=== PATIENT | female | born 1995 | race Caucasian/White ===

== ENCOUNTER 2016-04-12 23:20 | Emergency (ER) | payer OTHER ==
[~2016-04-12] VITALS: Ht 167.6 cm; Wt 74.1 kg
[~2016-04-12 23:20] MED LIST: AMOXICILLIN500 MG PO; EPIPEN ADU0.3 MG/0.3 IM; FLAGYL500 MG PO; FLEXERIL5 MG PO; IMODIUM MS REL1 EACH PO; MOTRIN800 MG PO; NAPROSYN500 MG PO; OXYCODONE H5 MG/5 ML PO; PREDNISONE20 MG PO; PRILOSEC20 MG PO; PROMETHAZINE HC25 M1 PO; ZOFRAN ODT8 MG PO
[2016-04-12 23:43] LABS: HEMATOCRIT 37.8 % (36.0-46.0); MCH 29.5 PG (29.0-34.0); MCHC 33.6 G/DL (30.0-36.0); MCV 87.9 FL (83-99); MEAN PLAT.VOLUME 9.3 uM^3 (9.5-12.4); PLATELET COUNT 340 K/uL (156-360); RBC DIS.WIDTH-CV 12.9 % (11.8-14.6); RBC DIS.WIDTH-SD 40.6 % (39-53); WHITE BLOOD COUNT 10.5 K/uL (4.1-10.2)
[2016-04-12 23:52] LABS: CHLORIDE 107 mEq/L (99-109); POTASSIUM 3.7 mEq/L (3.7-5.4); SODIUM 142 mEq/L (136-147)
[2016-04-12 23:54] LABS: GLUCOSE 92 mg/dL (70-99)
[2016-04-12 23:55] LABS: ANION GAP 11 MEQ/L (2-14)
[2016-04-12 23:56] LABS: TOTAL BILIRUBIN 0.3 mg/dL (0.0-1.0)
[2016-04-12 23:57] LABS: ALKALINE PHOSPHATASE 55 IU/L (3-129)
[2016-04-12 23:58] LABS: GFR ESTIMATE (CALCULATED) > 59 mL/min/
[2016-04-12 23:59] LABS: UREA NITROGEN (BUN) 9 mg/dL (9-23)
[2016-04-13 00:06] LABS: QUANTITATIVE HCG < 4.0 MIU/ML
[2016-04-13 00:28] LABS: ADD MIUA? YES; BILIRUBIN NEGATIVE; BLOOD LARGE; COLOR YELLOW ((YELLOW)); GLUCOSE (STRIP) NEGATIVE; KETONES NEGATIVE; LEUKOCYTES SMALL; NITRITE NEGATIVE; PROTEIN (STRIP) >=300; SPECIFIC GRAVITY 1.024 (1.000-1.030); UROBILINOGEN 0.2 MG/DL (0.2-1.0)
[2016-04-13 00:45] LABS: RED BLOOD CELLS TNTC /HPF (0-5)
[2016-04-13 00:49] LABS: WHITE BLOOD CELLS 20-30 /HPF (0-5)
[2016-04-13 00:50] LABS: BACTERIA NONE SEEN; CASTS NONE SEEN /LPF; CRYSTALS NONE SEEN; EPITHELIAL CELLS NONE SEEN; MUCUS NONE SEEN; UCUL ADDED? NO
[2016-04-13] MEDS ORDERED: CIPRO500 MG PO (04:32)
[2016-04-13] MEDS ORDERED: ZOFRAN ODT4 MG PO (04:32)
[2016-04-13] MEDS ORDERED: PYRIDIUM200 MG PO (04:32)
[2016-04-13 04:48] VITALS: BP 121/65
== END 2016-04-13 04:52 | disposition home or self-care (01) ==
LOC: EME 23:20
DX: N39.0 Urinary tract infection, site not specified (principal)
CPT/HCPCS: 74176; 80053; 81003; 84702; 85027; 99281; 99284

== ENCOUNTER 2016-10-07 10:36 | Emergency (ER) | payer OTHER ==
[~2016-10-07] VITALS: Ht 170.2 cm; Wt 74.1 kg
[~2016-10-07 10:36] MED LIST changes: +CIPRO500 MG PO; +PYRIDIUM200 MG PO; +ZOFRAN ODT4 MG PO
[2016-10-07 11:33] LABS: ADD MIUA? YES; BILIRUBIN NEGATIVE; BLOOD LARGE; COLOR YELLOW ((YELLOW)); GLUCOSE (STRIP) NEGATIVE; KETONES NEGATIVE; LEUKOCYTES NEGATIVE; NITRITE NEGATIVE; PROTEIN (STRIP) 30; SPECIFIC GRAVITY 1.015 (1.000-1.030); UROBILINOGEN 0.2 MG/DL (0.2-1.0)
[2016-10-07 11:39] LABS: BACTERIA RARE /HPF; EPITHELIAL CELLS 2+ /HPF; MUCUS TRACE /LPF; RED BLOOD CELLS 15-20 /HPF (0-5); UCUL ADDED? NO
[2016-10-07 11:49] LABS: HEMATOCRIT 37.8 % (36.0-46.0); MCH 29.2 PG (29.0-34.0); MCHC 33.6 G/DL (30.0-36.0); MCV 86.9 FL (83-99); MEAN PLAT.VOLUME 9.1 uM^3 (9.5-12.4); PLATELET COUNT 317 K/uL (156-360); RBC DIS.WIDTH-CV 12.3 % (11.8-14.6); RBC DIS.WIDTH-SD 39.2 % (39-53); RED BLOOD COUNT 4.35 M/uL (3.80-5.20); WHITE BLOOD COUNT 7.1 K/uL (4.1-10.2)
[2016-10-07 11:59] LABS: CHLORIDE 106 mEq/L (99-109); POTASSIUM 3.7 mEq/L (3.7-5.4); SODIUM 136 mEq/L (136-147)
[2016-10-07 12:01] LABS: GLUCOSE 127 mg/dL (70-99)
[2016-10-07 12:03] LABS: ANION GAP 10 MEQ/L (2-14); TOTAL BILIRUBIN 0.4 mg/dL (0.0-1.0)
[2016-10-07 12:05] LABS: ALKALINE PHOSPHATASE 64 IU/L (3-129); GFR ESTIMATE (CALCULATED) > 59 mL/min/
[2016-10-07 12:06] LABS: UREA NITROGEN (BUN) 10 mg/dL (9-23)
[2016-10-07 12:08] LABS: LIPASE 16 U/L (1.0-51.0)
[2016-10-07 12:16] LABS: QUANTITATIVE HCG < 4.0 MIU/ML
[2016-10-07] MEDS ORDERED: ZOFRAN ODT4 MG PO (14:27)
[2016-10-07] MEDS ORDERED: NAPROSYN500 MG PO (14:27)
[2016-10-07 14:40] VITALS: BP 128/91
== END 2016-10-07 14:41 | disposition home or self-care (01) ==
LOC: EME 10:36
PROVIDERS: Nurse Practitioner Family
DX: N39.0 Urinary tract infection, site not specified (principal); N93.9 Abnormal uterine and vaginal bleeding, unspecified; Z79.2 Long term (current) use of antibiotics; Z87.440 Personal history of urinary (tract) infections
CPT/HCPCS: 74177; 80053; 81003; 83690; 84702; 85027; 87086; 99281; 99284; J1885; J7040

== ENCOUNTER 2016-11-04 08:03 | Emergency (ER) | payer OTHER ==
[~2016-11-04] VITALS: Ht 167.6 cm; Wt 73.3 kg
[2016-11-04 08:38] LABS: EOSINOPHIL (%) 3.9 % (0-5); EOSINOPHIL COUNT 0.2 K/uL (0-0.3); HEMATOCRIT 37.9 % (36.0-46.0); IMMATURE GRANULOCYTE (%) 0.2 % (0.0-0.7); INSTRUMENT ABS NEUTROPHIL CT 3.6 K/uL; LYMPHOCYTE COUNT 1.6 K/uL (1.0-2.8); MCH 29.2 PG (29.0-34.0); MCV 85.7 FL (83-99); MEAN PLAT.VOLUME 9.1 uM^3 (9.5-12.4); MONOCYTE (%) 7.1 % (3-12); MONOCYTE COUNT 0.4 K/uL (0-0.8); NEUTROPHIL (%) 61.2 % (45-76); NEUTROPHIL COUNT 3.6 K/uL (1.8-6.4); PLATELET COUNT 321 K/uL (156-360); RBC DIS.WIDTH-CV 11.9 % (11.8-14.6); RBC DIS.WIDTH-SD 37.8 % (39-53); RED BLOOD COUNT 4.42 M/uL (3.80-5.20); WHITE BLOOD COUNT 5.9 K/uL (4.1-10.2)
[2016-11-04 08:47] LABS: CHLORIDE 108 mEq/L (99-109); POTASSIUM 3.6 mEq/L (3.7-5.4); SODIUM 140 mEq/L (136-147)
[2016-11-04 08:49] LABS: GLUCOSE 101 mg/dL (70-99)
[2016-11-04 08:50] LABS: ANION GAP 9 MEQ/L (2-14)
[2016-11-04 08:51] LABS: TOTAL BILIRUBIN 0.5 mg/dL (0.0-1.0)
[2016-11-04 08:52] LABS: ALKALINE PHOSPHATASE 62 IU/L (3-129)
[2016-11-04 08:53] LABS: GFR ESTIMATE (CALCULATED) > 59 mL/min/
[2016-11-04 08:54] LABS: UREA NITROGEN (BUN) 13 mg/dL (9-23)
[2016-11-04 09:02] LABS: QUANTITATIVE HCG < 4.0 MIU/ML
[2016-11-04 10:32] LABS: ADD MIUA? YES; BILIRUBIN NEGATIVE; BLOOD NEGATIVE; COLOR YELLOW ((YELLOW)); GLUCOSE (STRIP) NEGATIVE; KETONES NEGATIVE; LEUKOCYTES TRACE; NITRITE NEGATIVE; PROTEIN (STRIP) NEGATIVE; UROBILINOGEN 0.2 MG/DL (0.2-1.0)
[2016-11-04 10:36] LABS: BACTERIA RARE /HPF; EPITHELIAL CELLS 2+ /HPF; MUCUS TRACE /LPF; RED BLOOD CELLS 0-5 /HPF (0-5); UCUL ADDED? YES
[2016-11-04 10:45] LABS: SPECIFIC GRAVITY 1.058 (1.000-1.030)
[2016-11-04] MEDS ORDERED: OXYCODONE HCL5 MG PO ×2 (11:12→11:20)
[2016-11-04] MEDS ORDERED: AUGMENTIN875 MG PO (11:12)
[2016-11-04] MEDS ORDERED: NAPROXEN500 MG PO (11:12)
[2016-11-04 11:39] VITALS: BP 120/86
== END 2016-11-04 11:42 | disposition home or self-care (01) ==
LOC: EME 08:03
PROVIDERS: Physician Assistant
DX: K36 Other appendicitis (principal); Z90.711 Acquired absence of uterus with remaining cervical stump
CPT/HCPCS: 74177; 80053; 81003; 84702; 85025; 87086; J3010; J7120

== ENCOUNTER 2016-11-11 07:15 | Day surgery (SDC) | payer OTHER ==
[~2016-11-11] VITALS: Ht 170.2 cm; Wt 72.6 kg
[~2016-11-11 07:15] MED LIST changes: +AUGMENTIN875 MG PO; +NAPROXEN500 MG PO; +OXYCODONE HCL5 MG PO
[2016-11-11 07:43] VITALS: BP 107/61
[2016-11-11] MEDS ORDERED: PERCOCET 5/31 TABLET PO (10:32)
[2016-11-11 11:35] VITALS: BP 118/86
[2016-11-11 12:37] VITALS: BP 116/66
[2016-11-11 14:25] VITALS: BP 106/67
== END 2016-11-11 14:45 | disposition home or self-care (01) ==
LOC: SDC 07:15
PROC: 0DTJ4ZZ Resection of Appendix, Percutaneous Endoscopic Approach (ICD-10-PCS; principal; 2016-11-11)
DX: K35.80 Unspecified acute appendicitis (principal); K36 Other appendicitis; R00.1 Bradycardia, unspecified; Z82.49 Family history of ischemic heart disease and other diseases of the circulatory system; Z82.0 Family history of epilepsy and other diseases of the nervous system
CPT/HCPCS: 84702; 88304; J0330; J0690; J1100; J1170; J1885; J2250; J2405; J2710; J2765; J3010

== ENCOUNTER 2016-12-14 17:31 | Emergency (ER) | payer OTHER ==
[~2016-12-14] VITALS: Ht 170.2 cm; Wt 74.8 kg
[~2016-12-14 17:31] MED LIST changes: +PERCOCET 5/31 TABLET PO
[2016-12-14 18:06] LABS: HEMATOCRIT 37.1 % (36.0-46.0); MCH 29.1 PG (29.0-34.0); MCHC 33.7 G/DL (30.0-36.0); MCV 86.5 FL (83-99); PLATELET COUNT 258 K/uL (156-360); RBC DIS.WIDTH-CV 12.3 % (11.8-14.6); RBC DIS.WIDTH-SD 39.1 % (39-53); RED BLOOD COUNT 4.29 M/uL (3.80-5.20); WHITE BLOOD COUNT 6.2 K/uL (4.1-10.2)
[2016-12-14 18:16] LABS: CHLORIDE 110 mEq/L (99-109); POTASSIUM 3.7 mEq/L (3.7-5.4); SODIUM 142 mEq/L (136-147)
[2016-12-14 18:18] LABS: GLUCOSE 103 mg/dL (70-99)
[2016-12-14 18:19] LABS: ANION GAP 9 MEQ/L (2-14)
[2016-12-14 18:22] LABS: GFR ESTIMATE (CALCULATED) > 59 mL/min/; UREA NITROGEN (BUN) 10 mg/dL (9-23)
[2016-12-14 18:23] LABS: ADD MIUA? YES; BILIRUBIN NEGATIVE; BLOOD NEGATIVE; COLOR YELLOW ((YELLOW)); GLUCOSE (STRIP) NEGATIVE; KETONES NEGATIVE; LEUKOCYTES TRACE; NITRITE NEGATIVE; PROTEIN (STRIP) NEGATIVE; SPECIFIC GRAVITY 1.013 (1.000-1.030); UROBILINOGEN 0.2 MG/DL (0.2-1.0)
[2016-12-14 18:34] LABS: BACTERIA NONE SEEN /HPF; EPITHELIAL CELLS RARE /HPF; MUCUS NONE SEEN /LPF; RED BLOOD CELLS 0-5 /HPF (0-5); WHITE BLOOD CELLS 0-5 /HPF (0-5)
[2016-12-14] MEDS ORDERED: ZOFRAN ODT4 MG PO (19:29)
[2016-12-14] MEDS ORDERED: PERCOCET 5/31 TABLET PO (19:29)
[2016-12-14 19:34] VITALS: BP 119/80
[2016-12-14] MEDS ORDERED: ULTRAM50 MG PO (19:40)
[2016-12-14 20:10] LABS: QUANTITATIVE HCG < 4.0 MIU/ML
== END 2016-12-14 19:43 | disposition home or self-care (01) ==
LOC: EME 17:31
PROVIDERS: Physician Assistant
DX: N83.201 Unspecified ovarian cyst, right side (principal); Z90.711 Acquired absence of uterus with remaining cervical stump
CPT/HCPCS: 76856; 80048; 81003; 84702; 85027; 99281; 99284

== ENCOUNTER 2017-03-01 08:30 | Emergency (ER) | payer OTHER ==
[~2017-03-01] VITALS: Ht 167.6 cm; Wt 75.7 kg
[~2017-03-01 08:30] MED LIST changes: +ULTRAM50 MG PO
[2017-03-01 09:03] LABS: HEMATOCRIT 40.8 % (36.0-46.0); MCH 29.7 PG (29.0-34.0); MCHC 33.8 G/DL (30.0-36.0); MCV 87.7 FL (83-99); PLATELET COUNT 337 K/uL (156-360); RBC DIS.WIDTH-CV 12.3 % (11.8-14.6); RBC DIS.WIDTH-SD 39.8 % (39-53); RED BLOOD COUNT 4.65 M/uL (3.80-5.20); WHITE BLOOD COUNT 6.3 K/uL (4.1-10.2)
[2017-03-01 09:12] LABS: CHLORIDE 106 mEq/L (99-109); POTASSIUM 3.8 mEq/L (3.7-5.4); SODIUM 139 mEq/L (136-147)
[2017-03-01 09:14] LABS: GLUCOSE 75 mg/dL (70-99)
[2017-03-01 09:16] LABS: ANION GAP 9 MEQ/L (2-14)
[2017-03-01 09:18] LABS: GFR ESTIMATE (CALCULATED) > 59 mL/min/
[2017-03-01 09:22] LABS: TROP-I INTERPRETATION NEGATIVE; TROPONIN-I < 0.01 ng/mL (0.0-0.30)
[2017-03-01 09:40] LABS: UREA NITROGEN (BUN) 11 mg/dL (9-23)
[2017-03-01 09:48] LABS: QUANTITATIVE HCG < 4.0 MIU/ML
[2017-03-01 10:58] LABS: ADD MIUA? NO; BILIRUBIN NEGATIVE; BLOOD NEGATIVE; COLOR YELLOW ((YELLOW)); GLUCOSE (STRIP) NEGATIVE; KETONES NEGATIVE; LEUKOCYTES NEGATIVE; NITRITE NEGATIVE; PROTEIN (STRIP) NEGATIVE; UROBILINOGEN 0.2 MG/DL (0.2-1.0)
[2017-03-01 11:10] VITALS: BP 117/59
== END 2017-03-01 11:11 | disposition home or self-care (01) ==
LOC: EME 08:30
PROVIDERS: Physician Assistant Medical
DX: R07.9 Chest pain, unspecified (principal); F41.9 Anxiety disorder, unspecified; Z88.5 Allergy status to narcotic agent; Z91.040 Latex allergy status
CPT/HCPCS: 71020; 80048; 81003; 84484; 84702; 85027; 93005; 99281; 99284

== ENCOUNTER 2017-04-08 10:32 | Emergency (ER) | payer OTHER ==
[~2017-04-08] VITALS: Ht 170.2 cm; Wt 77.3 kg
[2017-04-08 11:28] LABS: HEMATOCRIT 39.6 % (36.0-46.0); HEMOGLOBIN 13.4 G/DL (11.9-15.5); MCH 29.7 PG (29.0-34.0); MCHC 33.8 G/DL (30.0-36.0); MCV 87.8 FL (83-99); PLATELET COUNT 318 K/uL (156-360); RBC DIS.WIDTH-CV 12.2 % (11.8-14.6); RBC DIS.WIDTH-SD 39.7 % (39-53); RED BLOOD COUNT 4.51 M/uL (3.80-5.20); WHITE BLOOD COUNT 6.2 K/uL (4.1-10.2)
[2017-04-08 11:37] LABS: CHLORIDE 110 mEq/L (99-109); POTASSIUM 3.8 mEq/L (3.7-5.4); SODIUM 142 mEq/L (136-147)
[2017-04-08 11:39] LABS: GLUCOSE 97 mg/dL (70-99)
[2017-04-08 11:43] LABS: CREATININE 0.7 mg/dL (0.6-1.3); GFR ESTIMATE (CALCULATED) > 59 mL/min/
[2017-04-08 11:44] LABS: UREA NITROGEN (BUN) 10 mg/dL (9-23)
[2017-04-08 11:52] LABS: QUANTITATIVE HCG < 4.0 MIU/ML
[2017-04-08 12:05] LABS: APPEARANCE CLEAR ((CLEAR)); BILIRUBIN NEGATIVE; BLOOD NEGATIVE; COLOR YELLOW ((YELLOW)); GLUCOSE (STRIP) NEGATIVE; KETONES NEGATIVE; LEUKOCYTES NEGATIVE; NITRITE NEGATIVE; PROTEIN (STRIP) NEGATIVE; SPECIFIC GRAVITY 1.023 (1.000-1.030); UCUL ADDED? NO; UROBILINOGEN 0.2 MG/DL (0.2-1.0)
[2017-04-08] MEDS ORDERED: MOTRIN800 MG PO (14:02)
[2017-04-08 14:17] VITALS: BP 129/82
[2017-04-10 07:44] LABS: SOURCE SWAB
== END 2017-04-08 14:18 | disposition home or self-care (01) ==
LOC: EME 10:32
PROVIDERS: Emergency Medicine
DX: R10.2 Pelvic and perineal pain (principal); Z90.711 Acquired absence of uterus with remaining cervical stump; Z91.040 Latex allergy status; Z88.5 Allergy status to narcotic agent; Z88.6 Allergy status to analgesic agent
CPT/HCPCS: 76770; 76856; 80048; 81003; 84702; 85027; 87210; 87491; 87591; 99281; 99285; J1885; J7030

== ENCOUNTER 2017-04-24 18:24 | Emergency (ER) | payer OTHER ==
[~2017-04-24] VITALS: Ht 170.2 cm; Wt 78.2 kg
[2017-04-24 19:27] VITALS: BP 126/60
== END 2017-04-24 19:28 | disposition home or self-care (01) ==
LOC: EME 18:24
DX: F43.0 Acute stress reaction (principal); Z88.5 Allergy status to narcotic agent; Z88.6 Allergy status to analgesic agent; Z91.040 Latex allergy status
CPT/HCPCS: 99281; 99284

== ENCOUNTER 2017-11-23 21:48 | Emergency (ER) | payer OTHER ==
[~2017-11-23] VITALS: Ht 170.2 cm; Wt 77.8 kg
[2017-11-23 22:25] LABS: HEMATOCRIT 37.8 % (36.0-46.0); MCH 29.5 PG (29.0-34.0); MCHC 34.4 G/DL (30.0-36.0); MCV 85.9 FL (83-99); PLATELET COUNT 315 K/uL (156-360); RBC DIS.WIDTH-CV 12.2 % (11.8-14.6); RBC DIS.WIDTH-SD 38.6 % (39-53); WHITE BLOOD COUNT 8.1 K/uL (4.1-10.2)
[2017-11-23 22:37] LABS: CHLORIDE 105 mEq/L (99-109); SODIUM 139 mEq/L (136-147)
[2017-11-23 22:39] LABS: GLUCOSE 91 mg/dL (70-99)
[2017-11-23 22:43] LABS: CREATININE 0.7 mg/dL (0.6-1.3); GFR ESTIMATE (CALCULATED) > 59 mL/min/
[2017-11-23 22:44] LABS: UREA NITROGEN (BUN) 10 mg/dL (9-23)
[2017-11-23 22:51] LABS: TROP-I INTERPRETATION NEGATIVE; TROPONIN-I < 0.01 ng/mL (0.0-0.30)
[2017-11-24 00:07] LABS: D-DIMER ELISA < 150.00 ng/mLDDU (<230)
[2017-11-24 01:53] VITALS: BP 114/70
== END 2017-11-24 02:10 | disposition home or self-care (01) ==
LOC: EME 21:48
PROVIDERS: Nurse Practitioner Family
DX: R07.9 Chest pain, unspecified (principal); F43.0 Acute stress reaction; R00.2 Palpitations; R42 Dizziness and giddiness; I44.5 Left posterior fascicular block; Z90.711 Acquired absence of uterus with remaining cervical stump
CPT/HCPCS: 71046; 80048; 84484; 85027; 85379; 93005; 99281; 99285